=== PATIENT | female | born 1945 | race Caucasian/White ===

== ENCOUNTER 2016-11-30 15:33 | Emergency (ER) | payer MEDICARE ==
[~2016-11-30] VITALS: Ht 172.7 cm; Wt 84.0 kg
[~2016-11-30 15:33] MED LIST: ACET325 PO; CYMB30CA PO; ERGO50000 PO; HYDR-3580 PO; LEVA500T PO; LISI-363 PO
[2016-11-30 15:39] VITALS: BP 161/84; PULSE 72; RESP 16; TEMP 98.2; O2SAT 96
--- NOTE | 2016-11-30 15:52 | PD ---
HPI Chief Complaint: Injury Time Seen by Provider: 15:47 Travel History International Travel<30 days: No Contact w/Intl Traveler<30days: No Traveled to known affect area: No History of Present Illness HPI Patient comes in for evaluation of left elbow pain after slip and fall. Patient states that she stepped on a wet float that caused her to fall landing on her left elbow. Patient states she landed on the float with the left elbow. Patient having throbbing aching pain left elbow that radiates proximally is worse with palpation and certain movement. Patient denies doing anything for this prior coming to the emergency department. Denies hitting her head or loss of consciousness. Denies any numbness or tingling anywhere. PFSH Past Medical History Arthritis: No Asthma: Yes Autoimmune Disease: No Blood Disorders: No Anxiety: No Depression: No Heart Rhythm Problems: No Cancer: Yes (CERVICAL, RADIATION AND JOSE) Cardiovascular Problems: No High Cholesterol: Yes Chemotherapy: No Chest Pain: No Congestive Heart Failure: No COPD: No Cerebrovascular Accident: No Diabetes: Yes (DIET CONTROLLED) Dialysis: No Diminished Hearing: Yes Endocrine: No Gastrointestinal Disorders: Yes (gastric bypass) GERD: Yes Glaucoma: No Genitourinary: No Headaches: No Hepatitis: No Hiatal Hernia: No Hypertension: Yes Immune Disorder: No Kidney Stones: No Musculoskeletal: Yes (ARTHRITIS) Neurologic: No Psychiatric: No Reproductive: No Respiratory: Yes (ASTHMA) Immunizations Current: Yes Migraines: No Myocardial Infarction: No Radiation Therapy: Yes (2001) Renal Failure: No Seizures: No Sickle Cell Disease: No Sleep Apnea: No Thyroid Disease: No Ulcer: No Menopausal: Yes Past Surgical History AICD: No Appendectomy: Yes Arteriovenous Shunt: No Cardiac Surgery: No Cholecystectomy: Yes Ear Surgery: No Endocrine Surgery: No Eye Surgery: No Genitourinary Surgery: Yes (HYSTERECTOMY) Gynecologic Surgery: Yes (JOSE) Hysterectomy: Yes Insulin Pump: No Joint Replacement: No Oral Surgery: Yes (T&A) Pacemaker: No Prostatectomy: Yes Thoracic Surgery: No Tonsillectomy: Yes Other Surgery: Yes Family History Family Hypercholesterolemia: Yes Social History Alcohol Use: No Tobacco Use: No Substance Use: No Allergies-Medications (Allergen,Severity, Reaction): Coded Allergies: Codeine (Verified Allergy, Severe, Hives, 10/27/14) Penicillin (Verified Allergy, Severe, Hives, 10/27/14) Reported Meds & Prescriptions Reported Meds & Active Scripts Active Reported Ergocalciferol 50,000 Unit Cap 50,000 Units PO Q7D Amlodipine (Amlodipine Besylate) 2.5 Mg Tab 2.5 Mg PO DAILY Cymbalta DR (Duloxetine HCl) 30 Mg Capdr 30 Mg PO DAILY Lisinopril 20 Mg Tab 20 Mg PO DAILY Tylenol (Acetaminophen) 325 Mg Tab 325 Mg PO Q4H PRN Hydrocodone/Acetaminophen 7.5 mg/325 mg 1 Tab 1-2 Tab PO Q6H Levaquin 500 Mg Tab (Levofloxacin) 500 Mg Tab 500 Mg PO DAILY 7 Days Vitamin D / Drisdol 50,000 Units (Ergocalciferol) 50,000 Units Cap 1 Cap PO Q7D Cymbalta (Duloxetine HCl) 30 Mg Cap 30 Mg PO DAILY Lisinopril 20 mg (Lisinopril) 20 Mg Tab 20 Mg PO BID Review of Systems Except as stated in HPI: all other systems reviewed are Neg Physical Exam Narrative GENERAL: Well-developed, overly nourished, in no acute distress, and non-ill appearing. SKIN: Focused skin assessment warm and dry. HEAD: Atraumatic. Normocephalic. EYES: Pupils equal and round. EOMI. No scleral icterus. No injection or drainage. ENT: No nasal bleeding or discharge. Mucous membranes pink and moist. NECK: Trachea midline. Supple. No nuclear rigidity. CARDIOVASCULAR: Radial pulses 2+, intact, and equal bilaterally. Capillary refill less than 2 seconds.. RESPIRATORY: No accessory muscle use. No respiratory distress. MUSCULOSKELETAL: No obvious deformities. No clubbing. No cyanosis. No edema. Full range of motion. Shoulder:FROM equal BL with passive flexion, extension, Abduction, Adduction, internal/external rotation, and pronation/supination. Sensation equal BL deltoid muscles. Pulses equal BL distal to injury. Capillary refill less than 2 seconds distal to injury and equal BL. FROM distal to injury and equal BL. Strength distal to injury equal BL. NV intact distal to injury equal BL. Flexion and extension of thumb equal BL. Equal strength and movement with abduction/adductions of BL fingers. Edge Plugger strength equal BL. Elbow : FROM and strength equal BL with passive flexion, extension, and pronation/ supination. No laxity noted with varus and valgus maneuvers. Pulses equal BL distal to injury. Capillary refill less than 2 seconds distal to injury and equal BL. FROM distal to injury and equal BL. Strength distal to injury equal BL. NV intact distal to injury and equal BL. Flexion and extension of thumb equal BL. Equal strength and movement with abduction/adductions of BL fingers. Edge Plugger strength equal BL. Patient reports tenderness to palpation posterior left elbow. NEUROLOGICAL: Awake and alert. No obvious cranial nerve deficits. Motor grossly within normal limits. Normal speech. PSYCHIATRIC: Appropriate mood and affect; insight and judgment normal. Data Data Last Documented VS Vital Signs Date Time Temp Pulse Resp B/P Pulse Ox O2 Delivery O2 Flow Rate FiO2 11/30/16 15:39 98.2 72 16 161/84 96 Orders Elbow, Complete (4 Vws) (11/30/16 ) Ice/Cold Pack (11/30/16 15:46) Acetaminophen (Tylenol) (11/30/16 16:15) MDM Medical Decision Making Medical Screen Exam Complete: Yes Emergency Medical Condition: Yes Differential Diagnosis Fracture, strain, contusion, other Narrative Course The patient appears to have suffered a contusion of the extremity. There is no clinical evidence to suspect bony injury by exam. Radiographic examination revealed no fracture seen at this time. The patient has full range of motion on active and passive motions. There is no significant edema. There is no proximal or distal joint effusion. The distal extremity appears neurovascularly intact, without evidence of neurovascular injury nor compartment syndrome. Tendon exam also was intact. The patient was discharged on pain medication instructions and given warnings for vascular compromise. The patient is to follow up with their regular physician or Orthopedics. The patient agrees with plan. Patient in no obvious distress upon re-evaluation. All pertinent Radiology result(s) discussed with patient. Any questions/concerns in reference to patient diagnosis/condition discussed and clarified prior to patient's discharge. Reinforced sheer importance of close follow up with patient's primary physician or primary care clinic. Instructed patient to return to ED immediately, if symptoms return/worsen. Pt showed understanding of above instructions. Further instructions and recommendations were detailed in discharge paperwork. Pt ambulated without difficulty out of ED at discharge. Diagnosis Primary Impression: Left elbow contusion Patient Instructions: Contusion in Adults (ED), General Instructions Additional Instructions: Follow-up with your primary care physician and/or orthopedic in 2-3 days for reevaluation. Apply ice to affected area 20 minutes per hour as needed for pain. Use [id number] Tylenol as needed for pain. Follow instructions on the packaging. Return to the emergency department if symptoms get worse. Disposition: 01 DISCHARGE HOME Condition: Sanchez Lal Nov 30, 2016 15:52
[2016-11-30] MEDS ORDERED: ERGO1CAP30 PO (15:57)
[2016-11-30] MEDS ORDERED: LISI-515 PO (15:57)
[2016-11-30] MEDS ORDERED: AMLO2.5T PO (15:57)
[2016-11-30] MEDS ORDERED: CYMB30CA PO (15:57)
[2016-11-30] MEDS ORDERED: ACETAMINOPHEN 500 MG CPLT PO ONE (16:15)
--- NOTE | 2016-11-30 16:53 | RADHPO ---
EXAM DATE/TIME: 11/30/2016 15:56 [facility] COMPARISON: No previous studies available for comparison. INDICATIONS : Fell, left elbow pain, limited ROM MEDICAL HISTORY : None. SURGICAL HISTORY : None. ENCOUNTER: Initial ACUITY: 1 day PAIN SCORE: 9/10 LOCATION: Left elbow FINDINGS: Multiple view examination of the left elbow demonstrates no soft tissue swelling, joint effusion, or fracture. The osseous structures are in normal alignment. Bony mineralization is normal. No radiop aque foreign bodies. CONCLUSION: No evidence of recent bony injury. Rodolfo Mena MD on November 30, 2016 at 16:51 Board Certified Radiologist. This report was verified electronically.
== END 2016-11-30 17:04 | disposition home or self-care (01) ==
LOC: PHEFT 15:33
DX: S50.02XA Contusion of left elbow, initial encounter (principal); J45.909 Unspecified asthma, uncomplicated; E78.00 Pure hypercholesterolemia, unspecified; E11.9 Type 2 diabetes mellitus without complications; K21.9 Gastro-esophageal reflux disease without esophagitis; I10 Essential (primary) hypertension; Z98.84 Bariatric surgery status; W01.0XXA Fall on same level from slipping, tripping and stumbling without subsequent striking against object, initial encounter; Y93.9 Activity, unspecified; Y92.9 Unspecified place or not applicable; Y99.8 Other external cause status
CPT/HCPCS: 73080; 99283

== ENCOUNTER 2017-01-15 21:55 | Emergency (ER) | payer MEDICARE ==
[~2017-01-15] VITALS: Ht 172.7 cm; Wt 82.1 kg
[~2017-01-15 21:55] MED LIST changes: +AMLO2.5T PO; +ERGO1CAP30 PO; +LISI-515 PO
[2017-01-15 22:01] VITALS: BP 143/87; PULSE 86; RESP 18; TEMP 98.1; O2SAT 95
[2017-01-15] MEDS ORDERED: diphenhydrAMINE HCL 50 MG/ML VIAL IVP ONE (23:15)
[2017-01-15] MEDS ORDERED: PROCHLORPERAZINE INJ 10 MG/2 ML VIAL IVP ONE (23:15)
[2017-01-15] MEDS ORDERED: SODIUM CHLORIDE 0.9% FLUSH 10 ML FLUSH IVF PRN (23:15)
--- NOTE | 2017-01-15 23:26 | PD ---
HPI . Headache Chief Complaint: Headache Time Seen by Provider: 23:01 Travel History International Travel<30 days: No Contact w/Intl Traveler<30days: No Traveled to known affect area: No History of Present Illness HPI Patient presents with a three-day history of a headache. She states that it is a stabbing pain in the left posterior scalp. She states that it comes every 41 seconds. She rates the pain as 10/10. It has been unrelieved by Tylenol. She has not noted any exacerbating factor. PFSH Past Medical History Arthritis: No Asthma: Yes Autoimmune Disease: No Blood Disorders: No Anxiety: No Depression: No Heart Rhythm Problems: No Cancer: Yes (CERVICAL, RADIATION AND JOSE) Cardiovascular Problems: No High Cholesterol: Yes Chemotherapy: No Chest Pain: No Congestive Heart Failure: No COPD: No Cerebrovascular Accident: No Diabetes: Yes Dialysis: No Diminished Hearing: Yes Endocrine: No Gastrointestinal Disorders: Yes (gastric bypass) GERD: Yes Glaucoma: No Genitourinary: No Headaches: No Hepatitis: No Hiatal Hernia: No Hypertension: Yes Immune Disorder: No Kidney Stones: No Musculoskeletal: Yes (ARTHRITIS) Neurologic: No Psychiatric: No Reproductive: No Respiratory: Yes (ASTHMA) Immunizations Current: Yes Migraines: No Myocardial Infarction: No Radiation Therapy: Yes (2001) Renal Failure: No Seizures: No Sickle Cell Disease: No Sleep Apnea: No Thyroid Disease: No Ulcer: No ?: Not Menopausal: Yes Past Surgical History AICD: No Appendectomy: Yes Arteriovenous Shunt: No Cardiac Surgery: No Cholecystectomy: Yes Ear Surgery: No Endocrine Surgery: No Eye Surgery: No Genitourinary Surgery: Yes (HYSTERECTOMY) Gynecologic Surgery: Yes (JOSE) Hysterectomy: Yes Insulin Pump: No Joint Replacement: No Oral Surgery: Yes (T&A) Pacemaker: No Prostatectomy: Yes Thoracic Surgery: No Tonsillectomy: Yes Other Surgery: Yes Family History Family Hypercholesterolemia: Yes Social History Alcohol Use: No Tobacco Use: No Substance Use: No Allergies-Medications (Allergen,Severity, Reaction): Coded Allergies: Codeine (Verified Allergy, Severe, Hives, 01/15/17) Penicillin (Verified Allergy, Severe, Hives, 01/15/17) Reported Meds & Prescriptions Reported Meds & Active Scripts Active Reported Ergocalciferol 50,000 Unit Cap 50,000 Units PO Q7D Amlodipine (Amlodipine Besylate) 2.5 Mg Tab 2.5 Mg PO DAILY Cymbalta DR (Duloxetine HCl) 30 Mg Capdr 30 Mg PO DAILY Lisinopril 20 Mg Tab 20 Mg PO DAILY Review of Systems Except as stated in HPI: all other systems reviewed are Neg General / Constitutional: No: Fever, Chills Eyes: No: Diploplia, Blurred Vision HENT: Positive: Headaches Gastrointestinal: No: Nausea, Vomiting Physical Exam Narrative GENERAL: Awake and alert and in no acute distress. SKIN: Warm and dry. HEAD: Atraumatic. Normocephalic. Positive scalp tenderness. EYES: Pupils equal and round. Extraocular movements are intact. ENT: No nasal bleeding or discharge. Mucous membranes pink and moist. NECK: Trachea midline. Full range of motion of the neck without any pain. Neck is supple. CARDIOVASCULAR: Regular rate and rhythm. RESPIRATORY: No accessory muscle use. MUSCULOSKELETAL: No obvious deformities. No edema. NEUROLOGICAL: Awake and alert. No obvious cranial nerve deficits. Motor grossly within normal limits. Normal speech. [id number] exam is intact. PSYCHIATRIC: Appropriate mood and affect; insight and judgment normal. Data Data Last Documented VS Vital Signs Date Time Temp Pulse Resp B/P Pulse Ox O2 Delivery O2 Flow Rate FiO2 01/15/17 23:10 Room Air 01/15/17 22:01 98.1 86 18 143/87 95 Orders Iv Access Insert/Monitor (01/15/17 23:01) Sodium Chloride 0.9% Flush (Ns Flush) (01/15/17 23:15) Prochlorperazine Inj (Compazine Inj) (01/15/17 23:15) Diphenhydramine Inj (Benadryl Inj) (01/15/17 23:15) [facility] Medical Decision Making Medical Screen Exam Complete: Yes Emergency Medical Condition: Yes Differential Diagnosis Differential diagnosis of headache includes but is not limited to migraine, muscle contraction headache, brain tumor, brain bleed Narrative Course Patient presents for treatment of a headache. She does not have any worrisome signs or symptoms such as fever, stiff neck, neurological signs. She will be treated symptomatically and will be discharged. The patient is now sound asleep. She will be discharged home. Diagnosis Primary Impression: Headache Qualified Code: G44.209 - Acute non intractable tension-type headache Patient Instructions: Acute Headache (DC), General Instructions Disposition: DISCHARGE HOME Condition: Stable Michelle Grossman MD Jan 15, 2017 23:25 Michelle Grossman MD Jan 15, 2017 23:25
[2017-01-16 00:05] VITALS: BP 150/70; PULSE 82; RESP 18; O2SAT 97
[2017-01-16 00:40] VITALS: BP 142/70
== END 2017-01-16 00:39 | disposition home or self-care (01) ==
LOC: PHED 21:55
DX: R51 Headache (principal); I10 Essential (primary) hypertension
CPT/HCPCS: 96374; 96375; 99284; J0780; J1200